=== PATIENT | male | born 1980 | race Caucasian/White ===

== ENCOUNTER 2016-06-21 10:53 | Outpatient (CLI) | payer MEDICAID | END 2016-06-21 10:54 | disposition home or self-care (01) | DX: R10.9 Unspecified abdominal pain (principal) ==

== ENCOUNTER 2016-07-03 12:06 | Emergency (ER) | payer MEDICAID | END 2016-07-03 13:23 | disposition home or self-care (01) | DX: R00.2 Palpitations (principal); F41.9 Anxiety disorder, unspecified; R03.0 Elevated blood-pressure reading, without diagnosis of hypertension; Z56.0 Unemployment, unspecified ==

== ENCOUNTER 2016-07-08 06:17 | Day surgery (SDC) | payer MEDICAID ==
[2016-07-08] MEDS ORDERED: ceFAZolin 1 GM VIAL ONE (06:26)
[2016-07-08] MEDS ORDERED: LACTATED RINGERS 1,000 ML IV ONE ×3 (07:32→12:45)
[2016-07-08] MEDS ORDERED: NEOSTIGMINE 1 MG/1 ML 10 ML MDV IVP ONE (07:50)
[2016-07-08] MEDS ORDERED: LIDOCAINE-PF 2% 10 ML AMP SUBQ ONE (07:50)
[2016-07-08] MEDS ORDERED: DEXAMETHASONE 4 MG/ML VIAL IVP ONE (07:50)
[2016-07-08] MEDS ORDERED: MIDAZOLAM 2 MG/2 ML VIAL IVP ONE (07:50)
[2016-07-08] MEDS ORDERED: ONDANSETRON 4 MG/2 ML VIAL IVP ONE (07:50)
[2016-07-08] MEDS ORDERED: ACETAMINOPHEN 1,000 MG/100 ML VIAL IV ONE (07:50)
[2016-07-08] MEDS ORDERED: GLYCOPYRROLATE 1 MG/5 ML VIAL IVP ONE (07:50)
[2016-07-08] MEDS ORDERED: ROCURONIUM 50 MG/5 ML VIAL IVP ONE (07:50)
[2016-07-08] MEDS ORDERED: fentaNYL 100 MCG/2 ML VIAL IVP ONE (07:50)
[2016-07-08] MEDS ORDERED: KETOROLAC 30 MG/ML VIAL IVP ONE (07:50)
[2016-07-08] MEDS ORDERED: SUCCINYLCHOLINE 200 MG/10 ML VIAL IVP ONE (07:50)
[2016-07-08] MEDS ORDERED: ePHEDrine 50 MG/ML AMP IVP ONE (07:50)
[2016-07-08] MEDS ORDERED: PROPOFOL 200 MG/20 ML VIAL IVP ONE (07:50)
[2016-07-08] MEDS ORDERED: BUPIVACAINE 0.5% PF 30 ML VIAL SUBQ ONE ×2 (07:59→09:39)
[2016-07-08] MEDS ORDERED: LIDOCAINE 1%-EPI 1:100000 20 ML MDV SUBQ ONE ×2 (07:59→09:39)
[2016-07-08] MEDS ORDERED: oxyCOD/ACETAMIN 5 MG/325 MG TABLET PO ONE (12:51)
== END 2016-07-08 06:18 | disposition home or self-care (01) ==
PROC: 0VBG4ZZ Excision of Left Spermatic Cord, Percutaneous Endoscopic Approach (ICD-10-PCS; 2016-07-08)
PROC: 0YU60JZ Supplement Left Inguinal Region with Synthetic Substitute, Open Approach (ICD-10-PCS; principal; 2016-07-08 07:30)
DX: K40.90 Unilateral inguinal hernia, without obstruction or gangrene, not specified as recurrent (principal); D17.6 Benign lipomatous neoplasm of spermatic cord; F41.0 Panic disorder [episodic paroxysmal anxiety]; Z80.42 Family history of malignant neoplasm of prostate
CPT/HCPCS: 49505; 55559; A9270; J0131; J7120

== ENCOUNTER 2016-08-08 11:19 | Outpatient (CLI) | payer MEDICAID | END 2016-08-08 11:20 | disposition home or self-care (01) | DX: K59.1 Functional diarrhea (principal) ==

== ENCOUNTER 2016-08-12 14:53 | Outpatient (CLI) | payer MEDICAID | END 2016-08-12 14:54 | disposition home or self-care (01) | DX: R10.11 Right upper quadrant pain (principal); R79.89 Other specified abnormal findings of blood chemistry ==

== ENCOUNTER 2016-08-15 09:54 | Emergency (ER) | payer MEDICAID ==
[2016-08-15] MEDS ORDERED: KETOROLAC 60 MG/2 ML VIAL IVP STA (10:48)
[2016-08-15] MEDS ORDERED: SODIUM CHLORIDE 0.9% 1,000 ML IV ONE (10:48)
[2016-08-15] MEDS ORDERED: KETOROLAC 30 MG/ML VIAL ONE (11:00)
[2016-08-15] MEDS ORDERED: IOPAMIDOL-300 100 ML VIAL IVP ONE (11:37)
== END 2016-08-15 12:46 | disposition home or self-care (01) ==
DX: R19.7 Diarrhea, unspecified (principal); R10.30 Lower abdominal pain, unspecified
CPT/HCPCS: 36415; 74177; 80053; 81003; 83690; 83735; 85025; 85651; 96374; 99283; 99284; Q9967

== ENCOUNTER 2016-10-28 11:04 | Outpatient (CLI) | payer MEDICAID ==
--- NOTE | 2016-10-28 12:45 | Ultrasound Report ---
LEFT GROIN ULTRASOUND: 10/28/2016 CLINICAL INDICATION: Pain in left hernia repair site. TECHNIQUE: Real-time scanning was performed with service center representative static images obtained. FINDINGS: Ultrasound of the left groin was performed. Hernia repair mesh is noted. No recurrent elvira ia is identified. No fluid collection is seen superficial to the mesh. IMPRESSION: LEFT GROIN HERNIA REPAIR MESH SEEN. NO EVIDENCE OF RECURRENT HERNIA. NO FLUID COLLECTION IDENTIFIED. JOB #: [id number] EXT JOB #:[id number]
== END 2016-10-28 11:05 | disposition home or self-care (01) ==
LOC: DI 11:04
PROVIDERS: ATTEND Surgery
DX: R10.32 Left lower quadrant pain (principal)
CPT/HCPCS: 76857

== ENCOUNTER 2020-03-19 07:00 | Outpatient (CLI) | payer MEDICAID | END 2020-03-19 23:59 | disposition home or self-care (01) | LOC: COV 07:00 | PROVIDERS: ATTEND Family Medicine | DX: R05 Cough (principal); M79.10 Myalgia, unspecified site; R68.83 Chills (without fever); J02.9 Acute pharyngitis, unspecified; R43.9 Unspecified disturbances of smell and taste; R09.81 Nasal congestion; R11.0 Nausea; Z20.828 Contact with and (suspected) exposure to other viral communicable diseases ==

== ENCOUNTER 2023-01-18 14:23 | Outpatient (CLI) | payer MEDICAID ==
--- NOTE | 2023-01-18 17:12 | XRAY Report ---
PROCEDURE: Cervical Spine 2 View INDICATIONS: PAIN IN RIGHT SHOULDER,CERVICAL RADICULPATHY TECHNIQUE: 3 view(s) of the cervical spine were acquired. COMPARISON: None. FINDINGS: Bones: No fractures or dislocations to the T1 level. There is straightening of normal cervical lordo sis. Very mild degenerative endplate changes are seen at C5-6 and C6-7 levels. The lateral masses of C1 appear intact on the odontoid view. No suspicious bony lesions. Soft tissues: No prevertebral soft tissue swelling. IMPRESSION: Mild degenerative disc disease in lower cervical spine. No fracture or dislocation. Reviewed by: Taye Lindsey MD on 01/18/2023 5:10 PM PDT Approved by: Taye Lindsey MD on 01/18/2023 5:10 PM PDT Station ID: [id number]
--- NOTE | 2023-01-18 17:13 | XRAY Report ---
PROCEDURE: Shoulder 3 View RT INDICATIONS: PAIN IN RIGHT SHOULDER,CERVICAL RADICULPATHY TECHNIQUE: 3 views of the shoulder were acquired. COMPARISON: None. FINDINGS: Bones: No fractures or dislocations. Moderate acromioclavicular joint osseous arthritis is seen wit h significant joint space narrowing, subchondral sclerosis and cyst formation as well as marginal ost eophyte formation. No suspicious bony lesions. Visualized ribs appear intact. Soft tissues: No suspicious soft tissue calcifications. IMPRESSION: Moderate acromioclavicular joint osteoarthritis. No fracture or dislocation. No gross soft tissue abn ormalities. Reviewed by: Taye Lindsey MD on 01/18/2023 5:11 PM PDT Approved by: Taye Lindsey MD on 01/18/2023 5:11 PM PDT Station ID: [id number]
--- NOTE | 2023-01-18 17:13 | XRAY Report ---
PROCEDURE: AC Joints INDICATIONS: CERVICAL RADICULOPATHY, RIGHT SHOULDER PAIN TECHNIQUE: 2 views each of both acromioclavicular joints were acquired. COMPARISON: Shoulder radiograph from the same day. FINDINGS: Bones: No fractures or dislocations. Asymmetric moderate right acromioclavicular joint osteoarthrit ic changes are seen with joint space narrowing, subchondral sclerosis, subcortical cyst formation and prominent marginal osteophyte formation. Weightbearing views demonstrate normal acromioclavicular zachary int alignment as well. No suspicious bony lesions. Superior ribs appear normal. Soft tissues: No suspicious soft tissue calcifications. IMPRESSION: Asymmetric moderate right acromioclavicular joint osteoarthritis. No fracture or disloca tion. Reviewed by: Taye Lindsey MD on 01/18/2023 5:12 PM PDT Approved by: Taye Lindsey MD on 01/18/2023 5:12 PM PDT Station ID: [id number]
== END 2023-01-18 14:24 | disposition home or self-care (01) ==
LOC: DI 14:23
PROVIDERS: ATTEND Registered Nurse
DX: M19.011 Primary osteoarthritis, right shoulder (principal); M50.122 Cervical disc disorder at C5-C6 level with radiculopathy

== ENCOUNTER 2023-03-13 08:00 | Outpatient (CLI) | payer MEDICAID ==
--- NOTE | 2023-03-13 11:57 | XRAY Report ---
PROCEDURE: Shoulder 1 View RT INDICATIONS: RIGHT SHOULDER PAIN, AXIAL VIEW TECHNIQUE: A single axial view of the shoulder was performed. COMPARISON: None. FINDINGS: Bones: No fractures or dislocations. No suspicious bony lesions. Visualized ribs appear intact. Soft tissues: No suspicious soft tissue calcifications. IMPRESSION: Axial view of the shoulder demonstrates no abnormality. Reviewed by: Sushil Ramirez on 03/13/2023 11:55 AM PDT Approved by: Sushil Ramirez on 03/13/2023 11:55 AM PDT Station ID: [id number]
== END 2023-03-13 23:59 | disposition home or self-care (01) ==
LOC: DI.WOS 08:00
PROVIDERS: ATTEND Orthopaedic Surgery
DX: M25.511 Pain in right shoulder (principal)